=== PATIENT | male | born 1965 | race Caucasian/White ===

== ENCOUNTER 2018-07-21 12:54 | Inpatient (IN) | payer OTHER ==
[2018-07-21] MEDS ORDERED: Sodium Chloride 0.9% 1,000 ML IV ONE ×2 (13:21→17:26)
[2018-07-21 13:40] LABS: BASO # 0.1 K/uL (0.0-0.2); BASO % 0.5 % (0.0-2.0); EOS % 0.3 % (0.0-4.0); HEMOGLOBIN 15.2 g/dL (12.0-18.0); LYMPH # 1.2 K/uL (1.0-4.3); LYMPH % 10.8 % (20.0-40.0); MEAN CORPUSCULAR HGB CONC 32.9 g/dL (33.0-37.0); MEAN PLATELET VOLUME 8.8 fL (7.2-11.7); MONO # 1.1 K/uL (0.0-0.8); NEUT # 8.9 K/uL (1.8-7.0); NEUT % 78.4 % (50.0-75.0); NRBC % 0.1 % (0.0-2.0); RBC 4.91 Mil/uL (4.40-5.90); RED CELL DISTRIBUTION WIDTH 13.2 % (11.5-14.5)
[2018-07-21 13:42] LABS: URINE BILIRUBIN NEGATIVE (NEGATIVE); URINE BLOOD NEGATIVE (NEGATIVE); URINE CLARITY Hazy (Clear); URINE COLOR Yellow (YELLOW); URINE GLUCOSE (UA) NORMAL (Normal); URINE LEUKOCYTE ESTERASE NEG Leu/uL (Negative); URINE PROTEIN 1+ mg/dL (NEGATIVE); URINE UROBILINOGEN NORMAL mg/dL (0.2-1.0)
[2018-07-21 13:47] LABS: WHITE BLOOD COUNT 11.3 K/uL (4.8-10.8)
[2018-07-21 13:56] LABS: ALB/GLOB RATIO 1.4 (1.0-2.1); ALBUMIN 4.7 g/dL (3.5-5.0); ALT/SGPT 26 U/L (21-72); AST/SGOT 32 U/L (17-59); BLOOD UREA NITROGEN 13 mg/dL (9-20); CALCIUM 9.2 mg/dl (8.6-10.4); GFR NON-AFRICAN AMERICAN > 60
[2018-07-21 14:06] LABS: LIPASE 2893 U/L (23-300)
[2018-07-21] MEDS ORDERED: Morphine 4 MG/ML VIAL ONE ×2 (14:45→17:32)
[2018-07-21] MEDS ORDERED: Iodixanol 320 MG/ML 100 ML BOTTLE IV ONE (14:48)
--- NOTE | 2018-07-21 16:10 | CT ---
Date of service: 07/21/2018 PROCEDURE: CT Abdomen and Pelvis with contrast HISTORY: abd pain COMPARISON: None available TECHNIQUE: Contrast dose: 100 mL Visipaque 320 IV Radiation dose: Total exam DLP = 1379.62 mGy-cm. This CT exam was performed using one or more of the following dose reduction techniques: Automated exposure control, adjustment of the mA and/or kV according to patient size, and/or use of iterative reconstruction technique. FINDINGS: LOWER THORAX: No visible consolidation, pleural effusion, or pneumothorax. Small hiatal hernia. LIVER: Unremarkable. GALLBLADDER AND BILE DUCTS: Unremarkable. PANCREAS: Unremarkable. SPLEEN: Unremarkable. ADRENALS: Unremarkable. KIDNEYS AND URETERS: The kidneys enhance symmetrically. No hydronephrosis or obstructing calculus identified. Right lower pole pelvic cyst. VASCULATURE: No aortic aneurysm. Atherosclerotic calcifications of the aorta. BOWEL: Stomach is nondistended. Lack of oral contrast limits evaluation for bowel pathology. Bowel loops appear within normal limits of caliber without evidence of obstruction. Extensive inflammatory stranding and fluid involving the sigmoid colon consistent with acute diverticulitis. Small focus of air (series 3, image 146) may reflect a tiny micro perforation versus diverticula. Small adjacent fluid. APPENDIX: The appendix appears within normal limits of caliber. No secondary signs of acute appendicitis. PERITONEUM: See above. LYMPH NODES: No bulky adenopathy identified. BLADDER: Unremarkable. REPRODUCTIVE: Unremarkable. BONES: No acute osseous abnormality is detected. OTHER FINDINGS: None. IMPRESSION: Extensive inflammatory stranding and fluid involving the sigmoid colon consistent with acute diverticulitis. Small focus of air (series 3, image 146) may reflect a tiny micro perforation versus diverticula. Additional findings as above.
[2018-07-21] MEDS ORDERED: Ciprofloxacin 400mg/200ml D5W 400 MG/200 ML BAG IV STA (17:24)
--- NOTE | 2018-07-21 17:48 | C.PDOC ---
History Of Present Illness 52 y/o male presents to the ER complaining of lower abdominal pain which has been present since last night. Patient states that he has associated nausea and diarrhea. Patient reports that the diarrhea is secondary to him taking Magnesium Citrate. He notes that he took Magnesium Citrate for the pain because he thought he had constipation. He states that he has fever. Denies having vomiting, dysuria, hematuria, GI bleeding, and trauma. Time Seen by Provider: 07/21/18 13:07 Chief Complaint (Nursing): Abdominal Pain History Per: Patient History/Exam Limitations: no limitations Onset/Duration Of Symptoms: Days Current Symptoms Are (Timing): Still Present Severity: Moderate Associated Symptoms: Fever, Nausea, Diarrhea. denies: Chills, Vomiting, Urinary Symptoms Past Medical History Reviewed: Historical Data, Nursing Documentation, Vital Signs Vital Signs: Last Vital Signs Temp 98.8 F 07/21/18 16:30 Pulse 88 07/21/18 16:30 Resp 18 07/21/18 16:30 BP 137/94 H 07/21/18 16:30 Pulse Ox 96 07/21/18 16:30 - Medical History PMH: No Chronic Diseases Surgical History: No Surg Hx Family History: States: No Known Family Hx - Social History Hx Alcohol Use: No Hx Substance Use: No - Immunization History Hx Tetanus Toxoid Vaccination: No Hx Influenza Vaccination: No Hx Pneumococcal Vaccination: No Review Of Systems Except As Marked, All Systems Reviewed And Found Negative. Constitutional: Positive for: Fever. Negative for: Chills Gastrointestinal: Positive for: Nausea, Abdominal Pain, Diarrhea. Negative for: Vomiting Genitourinary: Negative for: Dysuria, Hematuria Physical Exam - Physical Exam Appears: Non-toxic, Other (mild painful distress) Skin: Normal Color, Warm, Diaphoretic, No Rash Head: Atraumatic, Normacephalic Eye(s): bilateral: Normal Inspection, PERRL, EOMI Nose: Normal Oral Mucosa: Moist Throat: No Erythema, No Exudate Neck: Normal ROM, No Midline Cervical Tenderness, No Paracervical Tenderness, Supple Lymphatic: Normal Exam Chest: Symmetrical, No Tenderness Cardiovascular: Rhythm Regular, No Friction Rub, No Murmur Respiratory: Normal Breath Sounds, No Rales, No Rhonchi, No Wheezing Gastrointestinal/Abdominal: Bowel Sounds (active), Soft, Tenderness (moderate diffuse tenderness), Guarding (voluntary guarding), No Rebound Back: Normal Inspection, No CVA Tenderness Male Genital: Normal Inspection, No Testicular Tenderness, No Testicular Swelling, Other (No rash or erythema. Visual Educator: Lamberto Abraham RN) Extremity: Normal ROM, No Swelling Neurological/Psych: Oriented x3, Normal Speech, Normal Motor Gait: Steady ED Course And Treatment - Laboratory Results Result Diagrams: 07/21/18 13:36 07/21/18 13:36 Lab Results: Total Bilirubin 1.3 mg/dL (0.2-1.3) 07/21/18 13:36 AST 32 U/L (17-59) 07/21/18 13:36 ALT 26 U/L (21-72) 07/21/18 13:36 Alkaline Phosphatase 78 U/L (38-126) 07/21/18 13:36 Total Protein 8.1 g/dL (6.3-8.3) 07/21/18 13:36 Albumin 4.7 g/dL (3.5-5.0) 07/21/18 13:36 Globulin 3.4 gm/dL (2.2-3.9) 07/21/18 13:36 Albumin/Globulin Ratio 1.4 (1.0-2.1) 07/21/18 13:36 Lipase 2893 U/L (23-300) H 07/21/18 13:36 Urine Color Yellow (YELLOW) 07/21/18 13:36 Urine Clarity Hazy (Clear) 07/21/18 13:36 Urine pH 6.0 (5.0-8.0) 07/21/18 13:36 Ur Specific [place] 1.024 (1.003-1.030) 07/21/18 13:36 Urine Protein 1+ mg/dL (NEGATIVE) H 07/21/18 13:36 Urine Glucose (UA) Normal mg/dL (Normal) 07/21/18 13:36 Urine Ketones Negative mg/dL (NEGATIVE) 07/21/18 13:36 Urine Blood Negative (NEGATIVE) 07/21/18 13:36 Urine Nitrate Negative (NEGATIVE) 07/21/18 13:36 Urine Bilirubin Negative (NEGATIVE) 07/21/18 13:36 Urine Urobilinogen Normal mg/dL (0.2-1.0) 07/21/18 13:36 Ur Leukocyte Esterase Neg Baldo/uL (Negative) 07/21/18 13:36 Urine WBC (Auto) < 1 /hpf (0-5) 07/21/18 13:36 Urine RBC (Auto) 2 /hpf (0-3) 07/21/18 13:36 O2 Sat by Pulse Oximetry: 96 (RA) Pulse Ox Interpretation: Normal - CT Scan/US CT-Abd & Pelv. Other Rad Studies (CT/US): Read By Radiologist, Radiology Report Reviewed CT/US Interpretation: Date of service: 07/21/2018. PROCEDURE: CT Abdomen and Pelvis with contrast. HISTORY: abd pain. COMPARISON: None available. TECHNIQUE: Contrast dose: 100 mL Visipaque 320 IV. Radiation dose: Total exam DLP = 1379.62 mGy-cm. This CT exam was performed using one or more of the following dose reduction techniques: Automated exposure control, adjustment of the mA and/or kV according to patient size, and/or use of iterative reconstruction technique. FINDINGS: LOWER THORAX: No visible consolidation, pleural effusion, or pneumothorax. Small hiatal hernia. LIVER: Unremarkable. GALLBLADDER AND BILE DUCTS: Unremarkable. PANCREAS: Unremarkable. SPLEEN: Unremarkable. ADRENALS: Unremarkable. KIDNEYS AND URETERS: The kidneys enhance symmetrically. No hydronephrosis or obstructing calculus identified. Right lower pole pelvic cyst. VASCULATURE: No aortic aneurysm. Atherosclerotic calcifications of the aorta. BOWEL: Stomach is nondistended. Lack of oral contrast limits evaluation for bowel pathology. Bowel loops appear within n ormal limits of caliber without evidence of obstruction. Extensive inflammatory stranding and fluid involving the sigmoid colon consistent with acute diverticulitis. Small focus of air (series 3, image 146) may reflect a tiny micro perforation versus diverticula. Small adjacent fluid. APPENDIX: The appendix appears within normal limits of caliber. No secondary signs of acute appendicitis. PERITONEUM: See above. LYMPH NODES: No bulky adenopathy identified. BLADDER: Unremarkable. REPRODUCTIVE: Unremarkable. BONES: No acute osseous abnormality is detected. OTHER FINDINGS: None. IMPRESSION: Extensive inflammatory stranding and fluid involving the sigmoid colon consistent with acute diverticulitis. Small focus of air (series 3, image 146) may reflect a tiny micro perforation versus diverticula. Additional findings as above. Medical Decision Making Medical Decision Making: Plan: --Labs --UA --CT- Abd & Pelv. --IV Fluids --Zofran IV --Morphine IV --Flagyl IV --Ciprofloxacin IV At 1630, the patient states that he was having some testicular pain. Testicular US ordered. CT scan shows Diverticulitis with possible micro perforations. (+) pancreatitis. IV Cipro and Flagyl. 17:50 Case discussed with , hospitalist. is requesting for patient to be admitted under . Disposition - Disposition Disposition: HOSPITALIZED Disposition Time: 17:50 Condition: FAIR - Clinical Impression Clinical Impression: Diverticulitis, Pancreatitis - PA / [employer] / Resident Statement MD/DO has reviewed & agrees with the documentation as recorded. - Scribe Statement The provider has reviewed the documentation as recorded by the Scribe Josseline Moralez Provider Attestation All medical record entries made by the Scribe were at my direction and personally dictated by me. I have reviewed the chart and agree that the record accurately reflects my personal performance of the history, physical exam, medical decision making, and the department course for this patient. I have also personally directed, reviewed, and agree with the discharge instructions and disposition.
[2018-07-21] MEDS ORDERED: Ciprofloxacin 400mg/200ml D5W 400 MG/200 ML BAG IVPB ONE (18:21)
--- NOTE | 2018-07-21 19:10 | CP.PCM.HP ---
<Bibiana Shirley - Last Filed: 07/21/18 23:13> History of Present Illness - History of Present Illness History of Present Illness: PGY-1 Bibiana Shirley D.O. H&P for Dr. Chiu's service: Patient is a 52 yo male with history of GERD who presents with abdominal pain. Patient states that around midnight, he woke up with a sharp pain in his LLQ. The pain radiated across his lower abdomen. In the morning, he felt like he was constipated, so he took magnesium citrate. He then began to have diarrhea. He has had approximately 6 episodes of diarrhea today- watery, nonbloody. He also admits to nausea and has been unable to eat or drink anything since this morning. He denies vomiting. He endorses fever and chills. He says this pain has never happened to him before. Patient reports having a colonoscopy in 2007 in which they found diverticulosis. PMH: GERD PSH: colonoscopy 2007, EGD 2007, 2011 Meds: Omeprazole 20 mg PO daily PRN heartburn All: NKDA FH: maternal grandfather ( 86)- colon CA, mother ( 54)- ovarian CA, father- gout SH: lives with and 2 sons, works in IT at [employer], denies alcohol, tobacco, and illicit drug use PMD: Miqbel Present on Admission - Present on Admission Any Indicators Present on Admission: No History of DVT/PE: No History of Uncontrolled Diabetes: No Urinary Catheter: No Decubitus Ulcer Present: No History Surgical Site Infection Following: None Review of Systems - Constitutional Constitutional: Chills, Fever, Headache. absent: Weight Loss - EENT Eyes: absent: Change in Vision Ears: absent: Decreased Hearing Nose/Mouth/Throat: absent: Nasal Congestion, Sore Throat - Cardiovascular Cardiovascular: absent: Chest Pain, Diaphoresis, Dyspnea, Palpitations - Respiratory Respiratory: absent: Cough, Dyspnea - Gastrointestinal Gastrointestinal: As Per HPI, Abdominal Pain, Diarrhea, Heartburn, Nausea. absent: Constipation, Vomiting - Genitourinary Genitourinary: absent: Dysuria, Hematuria - Musculoskeletal Musculoskeletal: absent: Back Pain, Neck Pain, Numbness, Tingling - Integumentary Integumentary: absent: Lesions, Rash - Neurological Neurological: absent: Dizziness, Focal Weakness, Sensory Deficit - Psychiatric Psychiatric: absent: Anxiety, Depression - Endocrine Endocrine: absent: Fatigue, Palpitations, Polydipsia, Polyphagia, Polyuria - Hematologic/Lymphatic Hematologic: absent: Easy Bleeding, Easy Bruising, Lymphadenopathy Past Patient History - Infectious Disease Hx of Infectious Diseases: None - Tetanus Immunizations Tetanus Immunization: Unknown - Past Medical History & Family History Past Medical History?: Yes Pertinent Family History: maternal grandfather- colon CA; mother- ovarian CA - Past Social History Smoking Status: Never Smoked Chewing Tobacco Use: No Cigar Use: No Alcohol: None Drugs: Denies Home Situation {Lives}: With Family - PSYCHIATRIC Hx Substance Use: No - ANESTHESIA Hx Anesthesia: No Meds Allergies/Adverse Reactions: Allergies Allergy/AdvReac Type Severity Reaction Status Date / Time No Known Allergies Allergy Unverified 08/06/15 21:39 Physical Exam - Constitutional Appears: Non-toxic, No Acute Distress - Head Exam Head Exam: ATRAUMATIC, NORMAL INSPECTION - Eye Exam Eye Exam: EOMI, Normal appearance, PERRL - ENT Exam ENT Exam: Mucous Membranes Moist - Neck Exam Neck exam: Positive for: Normal Inspection - Respiratory Exam Respiratory Exam: Clear to Auscultation Bilateral, NORMAL BREATHING PATTERN - Cardiovascular Exam Cardiovascular Exam: RRR, +S1, +S2 - GI/Abdominal Exam GI & Abdominal Exam: Distended, Guarding, Soft, Tenderness (LLQ). absent: Rebound Additional comments: Espinoza's sign negative Psoas sign negative - Extremities Exam Extremities exam: Positive for: normal inspection, pedal pulses present. Negative for: pedal edema, tenderness - Back Exam Back exam: NORMAL INSPECTION - Neurological Exam Neurological exam: Alert, CN II-XII Intact, Normal Gait, Oriented x3 - Psychiatric Exam Psychiatric exam: Normal Affect, Normal Mood - Skin Skin Exam: Dry, Intact, Normal Color, Warm Results - Vital Signs Recent Vital Signs: Last Vital Signs Temp 98.8 F 07/21/18 16:30 Pulse 88 07/21/18 16:30 Resp 18 07/21/18 16:30 BP 137/94 H 07/21/18 16:30 Pulse Ox 96 07/21/18 18:57 - Labs Result Diagrams: 07/21/18 13:36 07/21/18 13:36 Labs: Laboratory Results - last 24 hr 07/21/18 07/21/18 07/21/18 13:36 13:36 13:36 WBC 11.3 H D RBC 4.91 Hgb 15.2 Hct 46.1 MCV 94.0 MCH 31.0 MCHC 32.9 L RDW 13.2 Plt Count 186 MPV 8.8 Neut % (Auto) 78.4 H Lymph % (Auto) 10.8 L Brooke % (Auto) 10.0 Eos % (Auto) 0.3 Baso % (Auto) 0.5 Neut # (Auto) 8.9 H Lymph # (Auto) 1.2 Brooke # (Auto) 1.1 H Eos # (Auto) 0.0 Baso # (Auto) 0.1 Sodium 139 Potassium 4.2 Chloride 102 Carbon Dioxide 28 Anion Gap 13 BUN 13 Creatinine 0.8 Est GFR ( Amer) > 60 Est GFR (Non-Af Amer) > 60 Random Glucose 129 H D Calcium 9.2 Total Bilirubin 1.3 AST 32 ALT 26 Alkaline Phosphatase 78 Total Protein 8.1 Albumin 4.7 Globulin 3.4 Albumin/Globulin Ratio 1.4 Lipase 2893 H Urine Color Yellow Urine Clarity Hazy Urine pH 6.0 Ur Specific [place] 1.024 Urine Protein 1+ H Urine Glucose (UA) Normal Urine Ketones Negative Urine Blood Negative Urine Nitrate Negative Urine Bilirubin Negative Urine Urobilinogen Normal Ur Leukocyte Esterase Neg Urine WBC (Auto) < 1 Urine RBC (Auto) 2 - Imaging and Cardiology CT scan - abdomen Status: Image reviewed by me, Report reviewed by me Assessment & Plan - Assessment and Plan (Free Text) Assessment: Patient is a 52 yo male with history of GERD who presents with abdominal pain. Found to have diverticulitis on CT with questionable microperforation. Lipase elevated at 2893 but pancreas unremarkable on CT. This likely not primary pancreatitis but rather 2/2 colon inflammation. Plan: Acute diverticulitis - Tmax 100.1 - WBC 11.3 - CT A/P: sigmoid diverticulitis, area of air representing micoperforation vs diverticula, unremarkable pancreas, no gallstones - NPO - f/u Blood Cx - D5 1/2NS @ 125 cc/hr - Cipro 400 mg IV Q12H- started 18 - Flagyl 500 mg IV Q8H- started 18 - Morphine 2 mg IV Q4H PRN - Zofran 4 mg IV Q6H PRN GERD - Protonix 40 mg IV daily Ppx: VTE: SCDs GI: Protonix 40 mg IV daily Code status: full code Case discussed with attending, Dr. Chiu. <Ravi Chiu - Last Filed: 07/22/18 07:46> Results - Vital Signs Recent Vital Signs: Last Vital Signs Temp 100.1 F H 07/21/18 23:35 Pulse 86 07/21/18 23:35 Resp 20 07/21/18 23:35 BP 96/58 L 07/21/18 23:35 Pulse Ox 96 07/21/18 23:35 - Labs Result Diagrams: 07/22/18 07:06 07/22/18 07:06 Labs: Laboratory Results - last 24 hr 07/21/18 07/21/18 07/21/18 13:36 13:36 13:36 WBC 11.3 H D RBC 4.91 Hgb 15.2 Hct 46.1 MCV 94.0 MCH 31.0 MCHC 32.9 L RDW 13.2 Plt Count 186 MPV 8.8 Neut % (Auto) 78.4 H Lymph % (Auto) 10.8 L [place] % (Auto) 10.0 Eos % (Auto) 0.3 Baso % (Auto) 0.5 Neut # (Auto) 8.9 H Lymph # (Auto) 1.2 Brooke # (Auto) 1.1 H Eos # (Auto) 0.0 Baso # (Auto) 0.1 Sodium 139 Potassium 4.2 Chloride 102 Carbon Dioxide 28 Anion Gap 13 BUN 13 Creatinine 0.8 Est GFR ( Amer) > 60 Est GFR (Non-Af Amer) > 60 Random Glucose 129 H D Calcium 9.2 Phosphorus Magnesium Total Bilirubin 1.3 AST 32 ALT 26 Alkaline Phosphatase 78 Total Protein 8.1 Albumin 4.7 Globulin 3.4 Albumin/Globulin Ratio 1.4 Triglycerides Cholesterol HDL Cholesterol Lipase 2893 H Urine Color Yellow Urine Clarity Hazy Urine pH 6.0 Ur Specific [place] 1.024 Urine Protein 1+ H Urine Glucose (UA) Normal Urine Ketones Negative Urine Blood Negative Urine Nitrate Negative Urine Bilirubin Negative Urine Urobilinogen Normal Ur Leukocyte Esterase Neg Urine WBC (Auto) < 1 Urine RBC (Auto) 2 07/21/18 07/22/18 07/22/18 20:15 07:06 07:06 WBC 9.5 RBC 4.13 L Hgb 13.3 Hct 39.4 MCV 95.4 H MCH 32.2 H MCHC 33.7 RDW 13.1 Plt Count 161 MPV 8.8 Neut % (Auto) 70.1 Lymph % (Auto) 14.6 L [place] % (Auto) 14.4 H Eos % (Auto) 0.6 Baso % (Auto) 0.3 Neut # (Auto) 6.7 Lymph # (Auto) 1.4 Brooke # (Auto) 1.4 H Eos # (Auto) 0.1 Baso # (Auto) 0.0 Sodium 135 Potassium 3.8 Chloride 103 Carbon Dioxide 28 Anion Gap 8 L BUN 12 Creatinine 0.9 Est GFR ( Amer) > 60 Est GFR (Non-Af Amer) > 60 Random Glucose 117 H Calcium 8.0 L Phosphorus 3.0 2.2 L Magnesium 2.3 2.1 Total Bilirubin 2.6 H AST 18 ALT 16 L D Alkaline Phosphatase 56 Total Protein 6.3 Albumin 3.6 Globulin 2.6 Albumin/Globulin Ratio 1.4 Triglycerides 36 D Cholesterol 119 HDL Cholesterol 43 Lipase Urine Color Urine Clarity Urine pH Ur Specific [place] Urine Protein Urine Glucose (UA) Urine Ketones Urine Blood Urine Nitrate Urine Bilirubin Urine Urobilinogen Ur Leukocyte Esterase Urine WBC (Auto) Urine RBC (Auto) Attending/Attestation - Attestation I have personally seen and examined this patient.: Yes I have fully participated in the care of the patient.: Yes I have reviewed all pertinent clinical information: Yes Notes (Text): 07/22/18 07:42 Diverticulitis likely got worse with use of mag citrate at home, slight elevated lipase likely for contigious inflammation form diverticulitis, no epigastric tenderness and no inflammation of pancreas on CT Plan Bowel rest IVF IV abx pain control Out patient f/u with his gi for colonoscopy for assessment of the diverticular segment. See orders for detail.
[2018-07-21] MEDS: Dextrose 5%/0.45% NS 1,000 ML IV SCH (22:29)
[2018-07-21] MEDS: metroNIDAZOLE IV 500 mg/100 ml 500 MG/100 ML BAG IV SCH (23:36)
[2018-07-21] MEDS: metroNIDAZOLE IV 500 mg/100 ml 500 MG/100 ML BAG IVPB SCH (23:40)
[2018-07-22] MEDS: Ciprofloxacin 400mg/200ml D5W 400 MG/200 ML BAG IVPB SCH ×2 (05:08→18:03)
--- NOTE | 2018-07-22 07:09 | CP.PCM.PN ---
Subjective - Date & Time of Evaluation Date of Evaluation: 07/22/18 Time of Evaluation: 07:09 - Subjective Subjective: Progress Note for Hospitalist service Patient seen and examined at bedside. Patient complains of persistent lower abdominal pain. He states he has not had a bowel movement since his admission here since he has not had anything to eat here. Patient is complaining of migraine like headache associated with sensitivity to light and sound. He denies diarrhea since his admission, denies nausea or vomiting, chest pain, shortness of breath, palpitations, fevers, chills, urinary frequency, leg pain. Objective - Vital Signs/Intake and Output Vital Signs (last 24 hours): Temp Pulse Resp BP Pulse Ox 100.1 F H 86 20 96/58 L 96 07/21/18 23:35 07/21/18 23:35 07/21/18 23:35 07/21/18 23:35 07/21/18 23:35 Intake and Output: 07/22/18 07/22/18 06:59 18:59 Intake Total 1000 Balance 1000 - Medications Medications: Current Medications Metronidazole (Flagyl) 500 mg in 100 mls @ 100 mls/hr IV STAT CARLINE; Protocol Ciprofloxacin (Cipro 400mg/200ml Dsw) 400 mg in 200 mls @ 133 mls/hr IVPB Q12H [facility]LINE; Protocol Last Admin: 07/22/18 05:08 Dose: 133 mls/hr Metronidazole (Flagyl) 500 mg in 100 mls @ 100 mls/hr IVPB Q8H [facility]; Protocol Last Admin: 07/21/18 23:40 Dose: 100 mls/hr Dextrose/Sodium Chloride (Dextrose 5%/0.45% Ns 1000 Ml) 1,000 mls @ 125 mls/hr IV .Q8H [facility]LINE Last Admin: 07/21/18 22:29 Dose: 125 mls/hr Morphine Sulfate (Morphine) 2 mg IVP Q4 PRN PRN Reason: Pain, severe (8-10) Last Admin: 07/22/18 01:27 Dose: 2 mg Ondansetron HCl (Zofran Inj) 4 mg IVP Q6H PRN PRN Reason: Nausea/Vomiting Pantoprazole Sodium (Protonix Inj) 40 mg IVP DAILY [facility] Pneumococcal Polyvalent Vaccine (Pneumovax 23 Vaccine) 0.5 ml IM .ONCE ONE Stop: 07/23/18 14:01 - Labs Labs: 07/21/18 13:36 07/21/18 13:36 - Constitutional Appears: Well, Non-toxic, Other (Mild distress ) - Head Exam Head Exam: ATRAUMATIC, NORMOCEPHALIC - Eye Exam Eye Exam: EOMI, PERRL - ENT Exam ENT Exam: Mucous Membranes Moist - Neck Exam Neck Exam: Full ROM. absent: Tenderness - Respiratory Exam Respiratory Exam: Clear to Ausculation Bilateral, NORMAL BREATHING PATTERN. absent: Rales, Rhonchi, Wheezes, Respiratory Distress, Stridor - Cardiovascular Exam Cardiovascular Exam: REGULAR RHYTHM, +S1, +S2. absent: Gallop, Rubs, Murmur - GI/Abdominal Exam GI & Abdominal Exam: Soft, Tenderness (of lower quadrants bilaterally, greatest in LLQ. ), Normal Bowel Sounds. absent: Distended, Firm, Rigid - Extremities Exam Extremities Exam: Normal Capillary Refill. absent: Calf Tenderness, Pedal Edema, Tenderness - Back Exam Back Exam: absent: CVA tenderness (L), CVA tenderness (R), rash noted - Neurological Exam Neurological Exam: Alert, Awake, CN II-XII Intact, Oriented x3 - Psychiatric Exam Psychiatric exam: Normal Affect, Normal Mood - Skin Skin Exam: Dry, Intact, Warm Assessment and Plan - Assessment and Plan (Free Text) Assessment: 52 year old male with history of GERD presenting for abdominal pain, found to have acute diverticulitis with microperforation of imaging. Plan: Acute diverticulitis with microperforation - Tmax 100.1 overnight - WBC 9.5 today, downtrending from 11.3 - CT A/P: sigmoid diverticulitis, area of air representing micoperforation vs diverticula, unremarkable pancreas, no gallstones - Keep NPO - Follow up blood cultures - Lipase elevated at 2893 - T bili elevated at 2.6 - D5 1/2NS @ 125 cc/hr - Cipro 400 mg IV Q12H- started 07/21 - Flagyl 500 mg IV Q8H- started 07/21 - Morphine 2 mg IV Q4H PRN - Zofran 4 mg IV Q6H PRN - GI Dr. Urias consulted, help appreciated Recommend continued antibiotic treatment with Cipro and Flagyl, pain control, clear liquid diet tomorrow morning if patient improves - Surgery Dr. Ortega consulted, help appreciated Recommend antibiotics. No plans for surgery at this time. GERD - Protonix 40 mg IV daily Headache - Toradol 30mg IV stat given - Continue to monitor Prophylaxis VTE: SCDs, Heparin 5000 SC Q12 GI: Protonix 40 mg IV daily Code status: full code Case discussed with Dr. Ajith Pascual, PGY1
[2018-07-22 07:28] LABS: BASO % 0.3 % (0.0-2.0); EOS # 0.1 K/uL (0.0-0.7); EOS % 0.6 % (0.0-4.0); HEMOGLOBIN 13.3 g/dL (12.0-18.0); LYMPH # 1.4 K/uL (1.0-4.3); LYMPH % 14.6 % (20.0-40.0); MEAN CELL VOLUME 95.4 fL (80.0-94.0); MEAN CORPUSCULAR HEMOGLOBIN 32.2 pg (27.0-31.0); MEAN CORPUSCULAR HGB CONC 33.7 g/dL (33.0-37.0); MEAN PLATELET VOLUME 8.8 fL (7.2-11.7); MONO # 1.4 K/uL (0.0-0.8); MONO % 14.4 % (0.0-10.0); NEUT # 6.7 K/uL (1.8-7.0); NEUT % 70.1 % (50.0-75.0); RBC 4.13 Mil/uL (4.40-5.90); RED CELL DISTRIBUTION WIDTH 13.1 % (11.5-14.5); WHITE BLOOD COUNT 9.5 K/uL (4.8-10.8)
[2018-07-22 07:38] LABS: ALB/GLOB RATIO 1.4 (1.0-2.1); ALBUMIN 3.6 g/dL (3.5-5.0); ALT/SGPT 16 U/L (21-72); AST/SGOT 18 U/L (17-59); BLOOD UREA NITROGEN 12 mg/dL (9-20); GFR NON-AFRICAN AMERICAN > 60; HDL CHOLESTEROL 43 mg/dL (30-70)
[2018-07-22 07:47] LABS: LDL CHOLESTEROL 74 mg/dL (0-129)
[2018-07-22] MEDS: Dextrose 5%/0.45% NS 1,000 ML IV SCH ×3 (08:52→21:49)
[2018-07-22] MEDS: metroNIDAZOLE IV 500 mg/100 ml 500 MG/100 ML BAG IVPB SCH ×3 (08:53→23:18)
--- NOTE | 2018-07-22 11:10 | US ---
Date of service: 07/21/2018 HISTORY: pain to the R testicles TECHNIQUE: Realtime sonography through the scrotum with color and doppler flow. COMPARISON: Testicular ultrasound performed 08/03/17 FINDINGS: RIGHT TESTICLE: Measures 4.7 x 1.7 x 2.7 cm. Homogeneous echotexture. Blood flow is demonstrated. RIGHT EPIDIDYMIS: Unremarkable. LEFT TESTICLE: Measures 4.7 x 1.4 x 2.2 cm. Homogeneous echotexture. Blood flow is demonstrated. LEFT EPIDIDYMIS: Unremarkable. HYDROCELE: Small left hydrocele. Trace right hydrocele. VARICOCELE: None. OTHER FINDINGS: None. IMPRESSION: Small left hydrocele. Trace right hydrocele. Preliminary impression was provided by [facility].
--- NOTE | 2018-07-22 13:20 | CP.PCM.CON ---
<Nav Galvan - Last Filed: 07/22/18 14:28> History of Present Illness - History of Present Illness History of Present Illness: PGY6 GI Fellow Consult Note Patient is a 52yo male with PMHx significant for diverticulosis who presented to the ED with abdominal pain. Pain began Saturday evening after dinner. Patient believed he was suffering with constipation and used Magnesium citrate. Followi ng the passage of multiple loose stool, he developed intense stabbing LLQ abdominal pain which radiated to the RLQ. Symptoms intensified over the course of the day yesterday and did not resolve which prompted him t ocome ot the ED for further evaluation. A CT perfomred in the ED revealed diverticulitis with microperforation and patient was admitted to the hospital, started on antibiotic therapy with Cipro/Flagyl. Since admission, he admits to improvement in pain. Continues to pass scant liquid stool. Denies any nausea, vomiting, weight loss, change in bowel habits or prior events like this. Does admit to fever/chills which have improved since admission. Had prior endoscopy/colonoscopy in 2007 which just revealed the presence of diverticulosis. 12 system ROS performed and negative except where stated above. PMHx: See HPI PSHx: Discussed with patient and he denies FHx: Discussed with patient and he denies significant GI malignancy Social: Former heavy tobacco/EtOH use - abstinent from both since 2004; no illicit drug use Endo: As stated in HPI Past Patient History - Infectious Disease Hx of Infectious Diseases: None - Tetanus Immunizations Tetanus Immunization: Unknown - Past Medical History & Family History Past Medical History?: Yes - Past Social History Smoking Status: Never Smoked Chewing Tobacco Use: No Cigar Use: No Alcohol: None Drugs: Denies Home Situation {Lives}: With Family - MUSCULOSKELETAL/RHEUMATOLOGICAL Hx Falls: No - GENITOURINARY/GYNECOLOGICAL Hx Genitourinary Disorders: No - PSYCHIATRIC Hx Substance Use: No - SURGICAL HISTORY Hx Surgeries: No - ANESTHESIA Hx Anesthesia: No Meds Allergies/Adverse Reactions: Allergies Allergy/AdvReac Type Severity Reaction Status Date / Time No Known Allergies Allergy Unverified 08/06/15 21:39 - Medications Medications: Current Medications Acetaminophen (Tylenol 325mg Tab) 650 mg PO Q6 PRN PRN Reason: Pain, moderate (4-7) Heparin Sodium (Porcine) (Heparin) 5,000 units SC Q12H [facility] Last Admin: 07/22/18 10:00 Dose: 5,000 units Metronidazole (Flagyl) 500 mg in 100 mls @ 100 mls/hr IV STAT [facility]; Protocol Ciprofloxacin (Cipro 400mg/200ml Dsw) 400 mg in 200 mls @ 133 mls/hr IVPB Q12H [facility]; Protocol Last Admin: 07/22/18 05:08 Dose: 133 mls/hr Metronidazole (Flagyl) 500 mg in 100 mls @ 100 mls/hr IVPB Q8H [facility]; Protocol Last Admin: 07/22/18 08:53 Dose: 100 mls/hr Dextrose/Sodium Chloride (Dextrose 5%/0.45% Ns 1000 Ml) 1,000 mls @ 125 mls/hr IV .Q8H [facility] Last Admin: 07/22/18 08:52 Dose: 125 mls/hr Morphine Sulfate (Morphine) 2 mg IVP Q4 PRN PRN Reason: Pain, severe (8-10) Last Admin: 07/22/18 09:00 Dose: 2 mg Ondansetron HCl (Zofran Inj) 4 mg IVP Q6H PRN PRN Reason: Nausea/Vomiting Pantoprazole Sodium (Protonix Inj) 40 mg IVP DAILY [facility] Last Admin: 07/22/18 10:00 Dose: 40 mg Pneumococcal Polyvalent Vaccine (Pneumovax 23 Vaccine) 0.5 ml IM .ONCE ONE Stop: 07/23/18 14:01 Physical Exam - Constitutional Appears: Non-toxic, No Acute Distress - Eye Exam Eye Exam: EOMI, PERRL - ENT Exam ENT Exam: Mucous Membranes Moist - Respiratory Exam Respiratory Exam: Clear to Auscultation Bilateral. absent: Rales, Rhonchi, Wheezes - Cardiovascular Exam Cardiovascular Exam: RRR, +S1, +S2 - GI/Abdominal Exam GI & Abdominal Exam: Normal Bowel Sounds, Soft, Tenderness (LLQ). absent: Distended, Firm, Guarding, Mass, Organomegaly, Rigid - Extremities Exam Extremities exam: Positive for: normal inspection. Negative for: pedal edema - Neurological Exam Neurological exam: Alert, Oriented x3 - Psychiatric Exam Psychiatric exam: Normal Affect, Normal Mood - Skin Skin Exam: Dry, Warm Results - Vital Signs Recent Vital Signs: Last Vital Signs Temp 98.5 F 02/19/19 08:00 Pulse 66 07/22/18 09:03 Resp 20 07/22/18 08:00 BP 110/68 07/22/18 09:03 Pulse Ox 95 07/22/18 08:00 - Labs Result Diagrams: 07/22/18 07:06 07/22/18 07:06 Labs: Laboratory Results - last 24 hr 07/21/18 07/21/18 07/21/18 13:36 13:36 13:36 WBC 11.3 H D RBC 4.91 Hgb 15.2 Hct 46.1 MCV 94.0 MCH 31.0 MCHC 32.9 L RDW 13.2 Plt Count 186 MPV 8.8 Neut % (Auto) 78.4 H Lymph % (Auto) 10.8 L [place] % (Auto) 10.0 Eos % (Auto) 0.3 Baso % (Auto) 0.5 Neut # (Auto) 8.9 H Lymph # (Auto) 1.2 [place] # (Auto) 1.1 H Eos # (Auto) 0.0 Baso # (Auto) 0.1 Sodium 139 Potassium 4.2 Chloride 102 Carbon Dioxide 28 Anion Gap 13 BUN 13 Creatinine 0.8 Est GFR ( Amer) > 60 Est GFR (Non-Af Amer) > 60 Random Glucose 129 H D Calcium 9.2 Phosphorus Magnesium Total Bilirubin 1.3 AST 32 ALT 26 Alkaline Phosphatase 78 Total Protein 8.1 Albumin 4.7 Globulin 3.4 Albumin/Globulin Ratio 1.4 Triglycerides Cholesterol LDL Cholesterol Direct HDL Cholesterol Lipase 2893 H Urine Color Yellow Urine Clarity Hazy Urine pH 6.0 Ur Specific [place] 1.024 Urine Protein 1+ H Urine Glucose (UA) Normal Urine Ketones Negative Urine Blood Negative Urine Nitrate Negative Urine Bilirubin Negative Urine Urobilinogen Normal Ur Leukocyte Esterase Neg Urine WBC (Auto) < 1 Urine RBC (Auto) 2 07/21/18 07/22/18 07/22/18 20:15 07:06 07:06 WBC 9.5 RBC 4.13 L Hgb 13.3 Hct 39.4 MCV 95.4 H MCH 32.2 H MCHC 33.7 RDW 13.1 Plt Count 161 MPV 8.8 Neut % (Auto) 70.1 Lymph % (Auto) 14.6 L [place] % (Auto) 14.4 H Eos % (Auto) 0.6 Baso % (Auto) 0.3 Neut # (Auto) 6.7 Lymph # (Auto) 1.4 [place] # (Auto) 1.4 H Eos # (Auto) 0.1 Baso # (Auto) 0.0 Sodium 135 Potassium 3.8 Chloride 103 Carbon Dioxide 28 Anion Gap 8 L BUN 12 Creatinine 0.9 Est GFR ( Amer) > 60 Est GFR (Non-Af Amer) > 60 Random Glucose 117 H Calcium 8.0 L Phosphorus 3.0 2.2 L Magnesium 2.3 2.1 Total Bilirubin 2.6 H AST 18 ALT 16 L D Alkaline Phosphatase 56 Total Protein 6.3 Albumin 3.6 Globulin 2.6 Albumin/Globulin Ratio 1.4 Triglycerides 36 D Cholesterol 119 LDL Cholesterol Direct 74 HDL Cholesterol 43 Lipase Urine Color Urine Clarity Urine pH Ur Specific [place] Urine Protein Urine Glucose (UA) Urine Ketones Urine Blood Urine Nitrate Urine Bilirubin Urine Urobilinogen Ur Leukocyte Esterase Urine WBC (Auto) Urine RBC (Auto) Assessment & Plan - Assessment and Plan (Free Text) Assessment: Patient is a 52yo male with PMHx significant for diverticulosis who presented to the ED with abdominal pain -Acute diverticulitis complicated by microperforation -Hyperlipasemia and indirect hyperbilirubinemia Plan: -CT scan reviewed with evidence of acute diverticulitis with microperforation -Continue antibiotic regimen with Cipro/Flagyl -Pain control with analgesia per primary service -Recommend clear liquid diet tomorrow morning if patient continues to improve, with slow advancement as tolerated; goal of high fiber diet upon resolution -Patient does not meet criteria for diagnosis of acute pancreatitis (imaging and physical exam unremarkable for this); elevated lipase can be seen in intraabdominal processes, particularly with perforation -Indirect hyperbilirubinemia possibly 2/2 Gilbert syndrome in setting of acute s tress -Consider surgical evaluation given complicated diverticulitis - Date & Time Date: 07/22/18 Time: 13:00 <Braxton Urias Y - Last Filed: 07/22/18 14:38> Meds - Medications Medications: Current Medications Acetaminophen (Tylenol 325mg Tab) 650 mg PO Q6 PRN PRN Reason: Pain, moderate (4-7) Heparin Sodium (Porcine) (Heparin) 5,000 units SC Q12H [facility] Last Admin: 07/22/18 10:00 Dose: 5,000 units Metronidazole (Flagyl) 500 mg in 100 mls @ 100 mls/hr IV STAT [facility]; Protocol Ciprofloxacin (Cipro 400mg/200ml Dsw) 400 mg in 200 mls @ 133 mls/hr IVPB Q12H [facility]; Protocol Last Admin: 07/22/18 05:08 Dose: 133 mls/hr Metronidazole (Flagyl) 500 mg in 100 mls @ 100 mls/hr IVPB Q8H [facility]; Protocol Last Admin: 07/22/18 08:53 Dose: 100 mls/hr Dextrose/Sodium Chloride (Dextrose 5%/0.45% Ns 1000 Ml) 1,000 mls @ 125 mls/hr IV .Q8H [facility] Last Admin: 07/22/18 08:52 Dose: 125 mls/hr Morphine Sulfate (Morphine) 2 mg IVP Q4 PRN PRN Reason: Pain, severe (8-10) Last Admin: 07/22/18 09:00 Dose: 2 mg Ondansetron HCl (Zofran Inj) 4 mg IVP Q6H PRN PRN Reason: Nausea/Vomiting Pantoprazole Sodium (Protonix Inj) 40 mg IVP DAILY [facility] Last Admin: 07/22/18 10:00 Dose: 40 mg Pneumococcal Polyvalent Vaccine (Pneumovax 23 Vaccine) 0.5 ml IM .ONCE ONE Stop: 07/23/18 14:01 Results - Vital Signs Recent Vital Signs: Last Vital Signs Temp 98.5 F 07/22/18 08:00 Pulse 66 07/22/18 09:03 Resp 20 07/22/18 08:00 BP 110/68 07/22/18 09:03 Pulse Ox 95 07/22/18 08:00 - Labs Result Diagrams: 07/22/18 07:06 07/22/18 07:06 Labs: Laboratory Results - last 24 hr 07/21/18 07/22/18 07/22/18 20:15 07:06 07:06 WBC 9.5 RBC 4.13 L Hgb 13.3 Hct 39.4 MCV 95.4 H MCH 32.2 H MCHC 33.7 RDW 13.1 Plt Count 161 MPV 8.8 Neut % (Auto) 70.1 Lymph % (Auto) 14.6 L [place] % (Auto) 14.4 H Eos % (Auto) 0.6 Baso % (Auto) 0.3 Neut # (Auto) 6.7 Lymph # (Auto) 1.4 [place] # (Auto) 1.4 H Eos # (Auto) 0.1 Baso # (Auto) 0.0 Sodium 135 Potassium 3.8 Chloride 103 Carbon Dioxide 28 Anion Gap 8 L BUN 12 Creatinine 0.9 Est GFR ( Amer) > 60 Est GFR (Non-Af Amer) > 60 Random Glucose 117 H Calcium 8.0 L Phosphorus 3.0 2.2 L Magnesium 2.3 2.1 Total Bilirubin 2.6 H Direct Bilirubin 0.1 AST 18 ALT 16 L D Alkaline Phosphatase 56 Total Protein 6.3 Albumin 3.6 Globulin 2.6 Albumin/Globulin Ratio 1.4 Triglycerides 36 D Cholesterol 119 LDL Cholesterol Direct 74 HDL Cholesterol 43 Attending/Attestation - Attestation I have personally seen and examined this patient.: Yes I have fully participated in the care of the patient.: Yes I have reviewed all pertinent clinical information: Yes Notes (Text): 07/22/18 14:33 I have seen and examined patient with GI fellow. Agree with above documentation with the following additions. In brief, this is a 52 year old male without significant past medical history who presents to hospital with complaint of sudden onset abdominal pain which began 2 days ago. Prior to this he was in usual state of health. He describes sharp LLQ, 8/10 intensity pain radiating to RLQ that began after consumption of dinner and became progressively worse. He does note recent constipation over the past few days and used magnesium citrate followed by passage of multiple soft bowel movements. He denies fever/chills, weight loss, rectal bleeding, or sick contacts. He had a colonoscopy 11 years ago in [facility] which showed diverticular disease as per patient. Abdominal pain Acute diverticulitis complicated by microperforation CT imaging reviewed by me showing sigmoid wall thickening with rubio-colonic i nflammatory stranding - NPO - Continue with antibiotic therapy - Continue with IVF hydration, supportive care - Suggest surgical consultation given presence of microperforation - Will continue to monitor patient clinical course, discussed with hospitalist team
[2018-07-22 13:29] LABS: BILIRUBIN,DIRECT 0.1 mg/dL (0.0-0.4)
--- NOTE | 2018-07-22 15:33 | CP.PCM.CON ---
History of Present Illness - History of Present Illness History of Present Illness: Surgery consult for Dr. Ott This is a 52 y/o male with past medical history of GERD who presented to the ED with complaints of LLQ pain radiating to the RLQ. Surgery was consulted for acute diverticulitis with possible microperforation. Patient states the pain started on Saturday night and took magnesium citrate as he attributed the pain to constipation. He had 4-5 episodes of watery, non bloody diarrhea afterward. Pain is exacerbated by movement. He described the pain to be shooting. This has never happened in the past. Patient reports improvement in pain due to morphine. His diarrheal episodes have decreased since yesterday. He feels bloated and has been passing gas. Denies fever, chills, chest pain, SOB, nausea, vomiting or dysuria. PMH - GERD PSH - Colonscopy 2005, endoscopy 2007 Allergies - Denies Meds - Omeprazole FamHx - Grandafather (colorectal cancer, at age of 86), Mother (ovarian cancer, at age of 53 SocHx - Last alcohol and tobacco use was in 2004 and denies illicit drug use Review of Systems: -Gen: No fever, No chills, No headache, No lethargy, No weakness. -HEENT: No dizziness, No change in vision, No change in hearing, No sore throat, No dysphagia, No nasal congestion, No mucous. -Cardio: No chest pain, No palpitations, No lower extremity edema, No orthopnea. -Resp: No cough, No dyspnea, No hemoptysis, No wheezing, No pain on inspiration. -GI: + abdominal pain, No nausea/vomiting, + diarrhea, No hematochezia, No hematemesis. -: No dysuria, No urinary freq, No incontinence, No hematuria, No change in urinary stream. -MSK: No back pain, No muscle weakness, No radiating pain. -Skin: No itching, No rash, No lesions. -Neuro: No confusion, No numbness, No tingling, No focal weakness, No radicular pain, No syncope. -Psych: No anxiety, No depression, No H/I, No S/I, No hallucinations. Review of Systems - Review of Systems Review of Systems: see HPI Past Patient History - Infectious Disease Hx of Infectious Diseases: None - Tetanus Immunizations Tetanus Immunization: Unknown - Past Medical History & Family History Past Medical History?: Yes - Past Social History Smoking Status: Never Smoked Chewing Tobacco Use: No Cigar Use: No Alcohol: None Drugs: Denies Home Situation {Lives}: With Family - MUSCULOSKELETAL/RHEUMATOLOGICAL Hx Falls: No - GENITOURINARY/GYNECOLOGICAL Hx Genitourinary Disorders: No - PSYCHIATRIC Hx Substance Use: No - SURGICAL HISTORY Hx Surgeries: No - ANESTHESIA Hx Anesthesia: No Meds Allergies/Adverse Reactions: Allergies Allergy/AdvReac Type Severity Reaction Status Date / Time No Known Allergies Allergy Unverified 08/06/15 21:39 - Medications Medications: Current Medications Acetaminophen (Tylenol 325mg Tab) 650 mg PO Q6 PRN PRN Reason: Pain, moderate (4-7) Heparin Sodium (Porcine) (Heparin) 5,[address] [facility] Last Admin: 07/22/18 10:00 Dose: 5,000 units Metronidazole (Flagyl) 500 mg in 100 mls @ 100 mls/hr IV STAT [facility]; Protocol Ciprofloxacin (Cipro 400mg/200ml Dsw) 400 mg in 200 mls @ 133 mls/hr IVPB Q12H [facility]; Protocol Last Admin: 07/22/18 05:08 Dose: 133 mls/hr Metronidazole (Flagyl) 500 mg in 100 mls @ 100 mls/hr IVPB Q8H [facility]; Protocol Last Admin: 07/22/18 08:53 Dose: 100 mls/hr Dextrose/Sodium Chloride (Dextrose 5%/0.45% Ns 1000 Ml) 1,000 mls @ 125 mls/hr IV .Q8H [facility] Last Admin: 07/22/18 08:52 Dose: 125 mls/hr Morphine Sulfate (Morphine) 2 mg IVP Q4 PRN PRN Reason: Pain, severe (8-10) Last Admin: 07/22/18 09:00 Dose: 2 mg Ondansetron HCl (Zofran Inj) 4 mg IVP Q6H PRN PRN Reason: Nausea/Vomiting Pantoprazole Sodium (Protonix Inj) [address] [facility] Last Admin: 07/22/18 10:00 Dose: 40 mg Pneumococcal Polyvalent Vaccine (Pneumovax 23 Vaccine) 0.5 ml IM .ONCE ONE Stop: 07/23/18 14:01 Physical Exam - Constitutional Appears: Non-toxic, No Acute Distress - Head Exam Head Exam: ATRAUMATIC, NORMAL INSPECTION - Eye Exam Eye Exam: Normal appearance - ENT Exam ENT Exam: Mucous Membranes Moist, Normal Exam - Respiratory Exam Respiratory Exam: Clear to Auscultation Bilateral, NORMAL BREATHING PATTERN. absent: Rales, Rhonchi, Wheezes, Respiratory Distress - Cardiovascular Exam Cardiovascular Exam: REGULAR RHYTHM, +S1, +S2. absent: RRR - GI/Abdominal Exam GI & Abdominal Exam: Distended, Normal Bowel Sounds, Tenderness. absent: Diminished Bowel Sounds, Firm, Guarding, Rebound, Rigid - Extremities Exam Extremities exam: Positive for: normal inspection - Neurological Exam Neurological exam: Alert, Oriented x3 - Psychiatric Exam Psychiatric exam: Normal Affect - Skin Skin Exam: Dry, Normal Color, Warm Results - Vital Signs Recent Vital Signs: Last Vital Signs Temp 98.5 F 07/22/18 08:00 Pulse 66 07/22/18 09:03 Resp 20 07/22/18 08:00 BP 110/68 07/22/18 09:03 Pulse Ox 95 07/22/18 08:00 - Labs Result Diagrams: 07/22/18 07:06 07/22/18 07:06 Labs: Laboratory Results - last 24 hr 07/21/18 07/22/18 07/22/18 20:15 07:06 07:06 WBC 9.5 RBC 4.13 L Hgb 13.3 Hct 39.4 MCV 95.4 H MCH 32.2 H MCHC 33.7 RDW 13.1 Plt Count 161 MPV 8.8 Neut % (Auto) 70.1 Lymph % (Auto) 14.6 L [place] % (Auto) 14.4 H Eos % (Auto) 0.6 Baso % (Auto) 0.3 Neut # (Auto) 6.7 Lymph # (Auto) 1.4 [place] # (Auto) 1.4 H Eos # (Auto) 0.1 Baso # (Auto) 0.0 Sodium 135 Potassium 3.8 Chloride 103 Carbon Dioxide 28 Anion Gap 8 L BUN 12 Creatinine 0.9 Est GFR ( Amer) > 60 Est GFR (Non-Af Amer) > 60 Random Glucose 117 H Calcium 8.0 L Phosphorus 3.0 2.2 L Magnesium 2.3 2.1 Total Bilirubin 2.6 H Direct Bilirubin 0.1 AST 18 ALT 16 L D Alkaline Phosphatase 56 Total Protein 6.3 Albumin 3.6 Globulin 2.6 Albumin/Globulin Ratio 1.4 Triglycerides 36 D Cholesterol 119 LDL Cholesterol Direct 74 HDL Cholesterol 43 Assessment & Plan - Assessment and Plan (Free Text) Assessment: 52 y/o male with acute diverticulitis. Plan: -VSS, afebrile -continue IV antibiotics -no plans for surgery at this time D/w Dr. Namrata Daugherty, PGY-1
[2018-07-22] MEDS: metroNIDAZOLE IV 500 mg/100 ml 500 MG/100 ML BAG IV SCH (23:18)
[2018-07-23] MEDS: metroNIDAZOLE IV 500 mg/100 ml 500 MG/100 ML BAG IVPB SCH ×4 (00:08→23:40)
[2018-07-23] MEDS: Ciprofloxacin 400mg/200ml D5W 400 MG/200 ML BAG IVPB SCH ×2 (05:11→18:36)
[2018-07-23] MEDS: Dextrose 5%/0.45% NS 1,000 ML IV SCH ×3 (07:00→21:38)
[2018-07-23 07:08] LABS: BASO % 0.4 % (0.0-2.0); EOS # 0.1 K/uL (0.0-0.7); EOS % 2.3 % (0.0-4.0); HEMOGLOBIN 13.2 g/dL (12.0-18.0); LYMPH # 1.5 K/uL (1.0-4.3); LYMPH % 24.8 % (20.0-40.0); MEAN CELL VOLUME 95.2 fL (80.0-94.0); MEAN CORPUSCULAR HEMOGLOBIN 32.1 pg (27.0-31.0); MEAN CORPUSCULAR HGB CONC 33.8 g/dL (33.0-37.0); MEAN PLATELET VOLUME 8.8 fL (7.2-11.7); MONO # 0.9 K/uL (0.0-0.8); MONO % 14.7 % (0.0-10.0); NEUT # 3.5 K/uL (1.8-7.0); NEUT % 57.8 % (50.0-75.0); RBC 4.09 Mil/uL (4.40-5.90); RED CELL DISTRIBUTION WIDTH 12.9 % (11.5-14.5)
--- NOTE | 2018-07-23 07:08 | CP.PCM.PN ---
<Marycarmen Pascual - Last Filed: 07/23/18 15:49> Subjective - Date & Time of Evaluation Date of Evaluation: 07/23/18 Time of Evaluation: 07:07 - Subjective Subjective: Progress Note for Hospitalist service Patient seen and examined at bedside. He states his pain is much improved from before, but has persistent pain at the site if he presses on his LLQ. He would like to try clear liquids if possible. He states his headache is not bothering him as much. He denies fevers, chills, chest pain, dizziness, palpitation, andrew rtness of breath, nausea, vomiting, diarrhea, urinary discomfort or frequency and leg pain. He is passing gas. Objective - Vital Signs/Intake and Output Vital Signs (last 24 hours): Temp Pulse Resp BP Pulse Ox 98.5 F 73 20 114/65 95 07/22/18 23:30 07/22/18 23:30 07/22/18 23:30 07/22/18 23:30 07/22/18 23:30 Intake and Output: 07/23/18 07/23/18 06:59 18:59 Intake Total 1000 Balance 1000 - Medications Medications: Current Medications Heparin Sodium (Porcine) (Heparin) 5,000 units SC Q12H [facility] Last Admin: 07/22/18 21:10 Dose: 5,000 units Metronidazole (Flagyl) 500 mg in 100 mls @ 100 mls/hr IV STAT [facility]; Protocol Ciprofloxacin (Cipro 400mg/200ml Dsw) 400 mg in 200 mls @ 133 mls/hr IVPB Q12H [facility]; Protocol Last Admin: 07/23/18 05:11 Dose: 133 mls/hr Metronidazole (Flagyl) 500 mg in 100 mls @ 100 mls/hr IVPB Q8H [facility]; Protocol Last Admin: 07/22/18 23:18 Dose: 100 mls/hr Dextrose/Sodium Chloride (Dextrose 5%/0.45% Ns 1000 Ml) 1,000 mls @ 125 mls/hr IV .Q8H [facility] Last Admin: 07/22/18 21:49 Dose: Not Given Morphine Sulfate (Morphine) 2 mg IVP Q4 PRN PRN Reason: Pain, severe (8-10) Last Admin: 07/23/18 05:37 Dose: 2 mg Ondansetron HCl (Zofran Inj) 4 mg IVP Q6H PRN PRN Reason: Nausea/Vomiting Pantoprazole Sodium (Protonix Inj) 40 mg IVP DAILY [facility] Last Admin: 07/22/18 10:00 Dose: 40 mg Pneumococcal Polyvalent Vaccine (Pneumovax 23 Vaccine) 0.5 ml IM .ONCE ONE Stop: 07/23/18 14:01 - Labs Labs: 07/22/18 07:06 07/22/18 07:06 - Constitutional Appears: Well, Non-toxic, No Acute Distress - Head Exam Head Exam: ATRAUMATIC, NORMOCEPHALIC - Eye Exam Eye Exam: EOMI, PERRL - ENT Exam ENT Exam: Mucous Membranes Moist - Neck Exam Neck Exam: Full ROM. absent: Tenderness - Respiratory Exam Respiratory Exam: Clear to Ausculation Bilateral. absent: Rales, Rhonchi, Wheezes, Respiratory Distress, Stridor - Cardiovascular Exam Cardiovascular Exam: REGULAR RHYTHM, +S1, +S2. absent: Gallop, Rubs, Murmur - GI/Abdominal Exam GI & Abdominal Exam: Soft, Tenderness (Mild LLQ tenderness), Normal Bowel Sounds. absent: Firm, Guarding, Rigid - Extremities Exam Extremities Exam: Normal Capillary Refill. absent: Calf Tenderness, Pedal Edema - Back Exam Back Exam: absent: CVA tenderness (L), CVA tenderness (R) - Neurological Exam Neurological Exam: Alert, Awake, Oriented x3 - Psychiatric Exam Psychiatric exam: Normal Affect, Normal Mood - Skin Skin Exam: Dry, Intact, Warm Assessment and Plan - Assessment and Plan (Free Text) Assessment: 52 year old male with history of GERD presenting for abdominal pain, found to marques ve acute diverticulitis with microperforation of imaging. Plan: Acute diverticulitis with microperforation - Afebrile overnight - WBC 6.0 today, downtrending - CT A/P: sigmoid diverticulitis, area of air representing micoperforation vs diverticula, unremarkable pancreas, no gallstones - Follow up blood cultures - Lipase elevated at 2893 - T bili elevated at 2.6 - D5 1/2NS @ 125 cc/hr - Cipro 400 mg IV Q12H- started 07/21 - Flagyl 500 mg IV Q8H- started 07/21 - Morphine 2 mg IV Q4H PRN - Zofran 4 mg IV Q6H PRN - GI Dr. Urias consulted, help appreciated Recommend continued antibiotic treatment with Cipro and Flagyl for total of 10 days, pain control, clear liquid diet - advance slowly as tolerated. Outpatient colonoscopy in 6-8 weeks after resolution of acute issues. Started on Clear liquid diet, tolerated well. Plan to advance to heart health diet at dinner. - Surgery Dr. Ortega consulted, help appreciated Continue antibiotics. Advance diet as tolerated. GERD - Protonix 40 mg IV daily Headache, resolved - Continue to monitor Hypokalemia K 3.5, repleted Continue to monitor Prophylaxis VTE: SCDs, Heparin 5000 SC Q12 GI: Protonix 40 mg IV daily Case discussed with Dr. Deisy Pascual, PGY1 <Kailash Olivas - Last Filed: 07/23/18 16:51> Objective - Vital Signs/Intake and Output Vital Signs (last 24 hours): Temp Pulse Resp BP Pulse Ox 98.1 F 73 20 131/46 L 98 07/23/18 16:40 07/23/18 16:40 07/23/18 16:40 07/23/18 16:40 07/23/18 16:40 Intake and Output: 07/23/18 07/23/18 06:59 18:59 Intake Total 1000 Balance 1000 - Medications Medications: Current Medications Heparin Sodium (Porcine) (Heparin) 5,000 units SC Q12H [facility] Last Admin: 07/23/18 08:49 Dose: 5,000 units Metronidazole (Flagyl) 500 mg in 100 mls @ 100 mls/hr IV STAT [facility]; Protocol Ciprofloxacin (Cipro 400mg/200ml Dsw) 400 mg in 200 mls @ 133 mls/hr IVPB Q12H [facility]; Protocol Last Admin: 07/23/18 05:11 Dose: 133 mls/hr Metronidazole (Flagyl) 500 mg in 100 mls @ 100 mls/hr IVPB Q8H [facility]; Protocol Last Admin: 07/23/18 16:07 Dose: 100 mls/hr Dextrose/Sodium Chloride (Dextrose 5%/0.45% Ns 1000 Ml) 1,000 mls @ 125 mls/hr IV .Q8H [facility] Last Admin: 07/23/18 14:05 Dose: 125 mls/hr Morphine Sulfate (Morphine) 2 mg IVP Q4 PRN PRN Reason: Pain, severe (8-10) Last Admin: 07/23/18 05:37 Dose: 2 mg Ondansetron HCl (Zofran Inj) 4 mg IVP Q6H PRN PRN Reason: Nausea/Vomiting Pantoprazole Sodium (Protonix Inj) 40 mg IVP DAILY [facility] Last Admin: 07/23/18 11:26 Dose: 40 mg - Labs Labs: 07/23/18 06:54 07/23/18 06:54 Attending/Attestation - Attestation I have personally seen and examined this patient.: Yes I have fully participated in the care of the patient.: Yes I have reviewed all pertinent clinical information, including history, physical exam and plan: Yes Notes (Text): Patient seen and examined with the residents, agree with above. No acute distress Noted to have mild LLQ tenderness on physical examination Continue with current Abx therapy; consider changing to PO today/tomorrow to finish course of 10 days. Advance diet as tolerated.
[2018-07-23 07:38] LABS: ALB/GLOB RATIO 1.4 (1.0-2.1); ALBUMIN 3.7 g/dL (3.5-5.0); ALT/SGPT 17 U/L (21-72); AST/SGOT 20 U/L (17-59); BLOOD UREA NITROGEN 9 mg/dL (9-20); CALCIUM 8.3 mg/dl (8.6-10.4); GFR NON-AFRICAN AMERICAN > 60
--- NOTE | 2018-07-23 09:14 | CP.PCM.PN ---
<Nav Galvan - Last Filed: 07/23/18 09:10> Subjective - Date & Time of Evaluation Date of Evaluation: 07/23/18 Time of Evaluation: 07:00 - Subjective Subjective: PGY6 GI Fellow Progress Note Patient seen and examined bedside this morning. The patient states he is feeling better today. Eager to try liquid diet. Denies any nausea, vomiting, bowel movements. No events overnight. 12 system ROS performed and negative except where stated Objective - Vital Signs/Intake and Output Vital Signs (last 24 hours): Temp Pulse Resp BP Pulse Ox 98.1 F 68 20 101/56 L 98 07/23/18 08:00 07/23/18 08:00 07/23/18 08:00 07/23/18 08:00 07/23/18 08:00 Intake and Output: 07/23/18 07/23/18 06:59 18:59 Intake Total 1000 Balance 1000 - Medications Medications: Current Medications Heparin Sodium (Porcine) (Heparin) 5,000 units SC Q12H [facility] Last Admin: 07/23/18 08:49 Dose: 5,000 units Metronidazole (Flagyl) 500 mg in 100 mls @ 100 mls/hr IV STAT [facility]; Protocol Ciprofloxacin (Cipro 400mg/200ml Dsw) 400 mg in 200 mls @ 133 mls/hr IVPB Q12H [facility]; Protocol Last Admin: 07/23/18 05:11 Dose: 133 mls/hr Metronidazole (Flagyl) 500 mg in 100 mls @ 100 mls/hr IVPB Q8H [facility]; Protocol Last Admin: 07/23/18 08:49 Dose: 100 mls/hr Dextrose/Sodium Chloride (Dextrose 5%/0.45% Ns 1000 Ml) 1,000 mls @ 125 mls/hr IV .Q8H [facility] Last Admin: 07/23/18 07:00 Dose: 125 mls/hr Morphine Sulfate (Morphine) 2 mg IVP Q4 PRN PRN Reason: Pain, severe (8-10) Last Admin: 07/23/18 05:37 Dose: 2 mg Ondansetron HCl (Zofran Inj) 4 mg IVP Q6H PRN PRN Reason: Nausea/Vomiting Pantoprazole Sodium (Protonix Inj) 40 mg IVP DAILY [facility] Last Admin: 07/22/18 10:00 Dose: 40 mg Pneumococcal Polyvalent Vaccine (Pneumovax 23 Vaccine) 0.5 ml IM .ONCE ONE Stop: 07/23/18 14:01 - Labs Labs: 07/23/18 06:54 07/23/18 06:54 - Constitutional Appears: Non-toxic, No Acute Distress - Eye Exam Eye Exam: EOMI, PERRL - ENT Exam ENT Exam: Mucous Membranes Moist - Respiratory Exam Respiratory Exam: Clear to Ausculation Bilateral. absent: Rales, Rhonchi, Wheezes - Cardiovascular Exam Cardiovascular Exam: RRR, +S1, +S2 - GI/Abdominal Exam GI & Abdominal Exam: Soft, Tenderness (LLQ), Normal Bowel Sounds. absent: Distended, Firm, Guarding, Rigid, Mass, Organomegaly, Pulsatile Mass, Rebound - Extremities Exam Extremities Exam: Normal Inspection. absent: Pedal Edema - Neurological Exam Neurological Exam: Alert, Awake, Oriented x3 - Psychiatric Exam Psychiatric exam: Normal Affect, Normal Mood - Skin Skin Exam: Dry, Warm Assessment and Plan - Assessment and Plan (Free Text) Assessment: Patient is a 52yo male with PMHx significant for diverticulosis who presented to the ED with abdominal pain -Acute diverticulitis complicated by microperforation -Hyperlipasemia and indirect hyperbilirubinemia Plan: -Advance to clear liquid diet, advance slowly as tolerated -Surgical consultation appreciated -Continue antibiotic regimen with Cipro/Flagyl - complete 10 day course -Pain control with analgesia per primary service -Outpatient colonoscopy 6-8 weeks after resolution of acute issues <Braxton Urias - Last Filed: 07/23/18 10:10> Objective - Vital Signs/Intake and Output Vital Signs (last 24 hours): Temp Pulse Resp BP Pulse Ox 98.1 F 68 20 101/56 L 98 07/23/18 08:00 07/23/18 08:00 07/23/18 08:00 07/23/18 08:00 07/23/18 08:00 Intake and Output: 07/23/18 07/23/18 06:59 18:59 Intake Total 1000 Balance 1000 - Medications Medications: Current Medications Heparin Sodium (Porcine) (Heparin) 5,000 units SC Q12H [facility] Last Admin: 07/23/18 08:49 Dose: 5,000 units Metronidazole (Flagyl) 500 mg in 100 mls @ 100 mls/hr IV STAT [facility]; Protocol Ciprofloxacin (Cipro 400mg/200ml Dsw) 400 mg in 200 mls @ 133 mls/hr IVPB Q12H [facility]; Protocol Last Admin: 07/23/18 05:11 Dose: 133 mls/hr Metronidazole (Flagyl) 500 mg in 100 mls @ 100 mls/hr IVPB Q8H [facility]; Protocol Last Admin: 07/23/18 08:49 Dose: 100 mls/hr Dextrose/Sodium Chloride (Dextrose 5%/0.45% Ns 1000 Ml) 1,000 mls @ 125 mls/hr IV .Q8H [facility] Last Admin: 07/23/18 07:00 Dose: 125 mls/hr Potassium Chloride (Potassium Chloride 20 Meq/100 Ml) 20 meq in 100 mls @ 50 mls/hr IVPB Q2 [facility] Stop: 07/23/18 13:59 Morphine Sulfate (Morphine) 2 mg IVP Q4 PRN PRN Reason: Pain, severe (8-10) Last Admin: 07/23/18 05:37 Dose: 2 mg Ondansetron HCl (Zofran Inj) 4 mg IVP Q6H PRN PRN Reason: Nausea/Vomiting Pantoprazole Sodium (Protonix Inj) 40 mg IVP DAILY [facility] Last Admin: 07/22/18 10:00 Dose: 40 mg Pneumococcal Polyvalent Vaccine (Pneumovax 23 Vaccine) 0.5 ml IM .ONCE ONE Stop: 07/23/18 14:01 - Labs Labs: 07/23/18 06:54 07/23/18 06:54 Attending/Attestation - Attestation I have personally seen and examined this patient.: Yes I have fully participated in the care of the patient.: Yes I have reviewed all pertinent clinical information, including history, physical exam and plan: Yes Notes (Text): 07/23/18 10:08 I have seen and examined patient with GI fellow. No acute events overnight, his abdominal pain has improved and he is passing gas. He denies nausea, vomiting, fever/chills, weight loss, or bowel movements. Review of vitals from today are normal. Acute complicated diverticulitis Hyperlipasemia - secondary to intraabdominal inflammatory process, normal appearing pancreas - Clear liquid diet as tolerated - Continue with antibiotic therapy - Follow up surgical recommendations - Plan for colonoscopy in 6-8 weeks following resolution of acute symptoms - Will continue to monitor patient clinical course
--- NOTE | 2018-07-23 12:08 | CP.PCM.PN ---
Subjective - Date & Time of Evaluation Date of Evaluation: 07/23/18 Time of Evaluation: 12:03 - Subjective Subjective: Surgery: Dr. Ott Pt seen and examined. No acute overnight events. States he feels better and abdominal pain has improved significantly. He denies any nausea/vomiting, diarrhea, fevers or chills. Objective - Vital Signs/Intake and Output Vital Signs (last 24 hours): Temp Pulse Resp BP Pulse Ox 98.1 F 68 20 101/56 L 98 07/23/18 08:00 07/23/18 08:00 07/23/18 08:00 07/23/18 08:00 07/23/18 08:00 Intake and Output: 07/23/18 07/23/18 06:59 18:59 Intake Total 1000 Balance 1000 - Medications Medications: Current Medications Heparin Sodium (Porcine) (Heparin) 5,000 units SC Q12H [facility] Last Admin: 07/23/18 08:49 Dose: 5,000 units Metronidazole (Flagyl) 500 mg in 100 mls @ 100 mls/hr IV STAT [facility]; Protocol Ciprofloxacin (Cipro 400mg/200ml Dsw) 400 mg in 200 mls @ 133 mls/hr IVPB Q12H [facility]; Protocol Last Admin: 07/23/18 05:11 Dose: 133 mls/hr Metronidazole (Flagyl) 500 mg in 100 mls @ 100 mls/hr IVPB Q8H [facility]; Protocol Last Admin: 07/23/18 08:49 Dose: 100 mls/hr Dextrose/Sodium Chloride (Dextrose 5%/0.45% Ns 1000 Ml) 1,000 mls @ 125 mls/hr IV .Q8H [facility] Last Admin: 07/23/18 07:00 Dose: 125 mls/hr Potassium Chloride (Potassium Chloride 20 Meq/100 Ml) 20 meq in 100 mls @ 50 mls/hr IVPB Q2 [facility] Stop: 07/23/18 13:59 Last Admin: 07/23/18 11:26 Dose: 50 mls/hr Morphine Sulfate (Morphine) 2 mg IVP Q4 PRN PRN Reason: Pain, severe (8-10) Last Admin: 07/23/18 05:37 Dose: 2 mg Ondansetron HCl (Zofran Inj) 4 mg IVP Q6H PRN PRN Reason: Nausea/Vomiting Pantoprazole Sodium (Protonix Inj) 40 mg IVP DAILY [facility] Last Admin: 07/23/18 11:26 Dose: 40 mg Pneumococcal Polyvalent Vaccine (Pneumovax 23 Vaccine) 0.5 ml IM .ONCE ONE Stop: 07/23/18 14:01 - Labs Labs: 07/23/18 06:54 07/23/18 06:54 - Constitutional Appears: Well, No Acute Distress - Head Exam Head Exam: ATRAUMATIC, NORMOCEPHALIC - ENT Exam ENT Exam: Mucous Membranes Moist - Respiratory Exam Respiratory Exam: NORMAL BREATHING PATTERN - Cardiovascular Exam Cardiovascular Exam: RRR - GI/Abdominal Exam GI & Abdominal Exam: Guarding (voluntary), Soft, Tenderness (LLQ with radiation to the Right ). absent: Distended - Neurological Exam Neurological Exam: Alert, Awake, Oriented x3 - Skin Skin Exam: Dry, Warm Assessment and Plan - Assessment and Plan (Free Text) Assessment: 52M with acute diverticulitis Plan: - cont ABX - advance diet slowly as tolerated - outpt colonoscopy with GI in 4-6 weeks - d/w Dr. Namrata Avila
[2018-07-23] MEDS ORDERED: Pneumococcal 23-Valent Vaccine IM ONE (14:00)
[2018-07-23] MEDS: metroNIDAZOLE IV 500 mg/100 ml 500 MG/100 ML BAG IV SCH (23:40)
[2018-07-24] MEDS: Ciprofloxacin 400mg/200ml D5W 400 MG/200 ML BAG IVPB SCH (05:14)
[2018-07-24] MEDS: Dextrose 5%/0.45% NS 1,000 ML IV SCH ×2 (06:48→06:52)
--- NOTE | 2018-07-24 06:57 | CP.PCM.PN ---
Subjective - Date & Time of Evaluation Date of Evaluation: 07/24/18 Time of Evaluation: 06:57 Objective - Vital Signs/Intake and Output Vital Signs (last 24 hours): Temp Pulse Resp BP Pulse Ox 98.8 F 78 18 114/69 98 07/23/18 23:39 07/23/18 23:39 07/23/18 23:39 07/23/18 23:39 07/23/18 23:39 Intake and Output: 07/23/18 07/24/18 18:59 06:59 Intake Total 1000 1000 Output Total 800 Balance 1000 200 - Medications Medications: Current Medications Heparin Sodium (Porcine) (Heparin) 5,000 units SC Q12H [facility] Last Admin: 07/23/18 21:38 Dose: 5,000 units Metronidazole (Flagyl) 500 mg in 100 mls @ 100 mls/hr IV STAT [facility]; Protocol Ciprofloxacin (Cipro 400mg/200ml Dsw) 400 mg in 200 mls @ 133 mls/hr IVPB Q12H [facility]; Protocol Last Admin: 07/24/18 05:14 Dose: 133 mls/hr Metronidazole (Flagyl) 500 mg in 100 mls @ 100 mls/hr IVPB Q8H [facility]; Protocol Last Admin: 07/23/18 23:40 Dose: 100 mls/hr Dextrose/Sodium Chloride (Dextrose 5%/0.45% Ns 1000 Ml) 1,000 mls @ 125 mls/hr IV .Q8H [facility] Last Admin: 07/24/18 06:52 Dose: Not Given Morphine Sulfate (Morphine) 2 mg IVP Q4 PRN PRN Reason: Pain, severe (8-10) Last Admin: 07/23/18 05:37 Dose: 2 mg Ondansetron HCl (Zofran Inj) 4 mg IVP Q6H PRN PRN Reason: Nausea/Vomiting Pantoprazole Sodium (Protonix Inj) 40 mg IVP DAILY [facility] Last Admin: 07/23/18 11:26 Dose: 40 mg - Labs Labs: 07/23/18 06:54 07/23/18 06:54
[2018-07-24 08:15] LABS: BASO % 0.4 % (0.0-2.0); EOS # 0.2 K/uL (0.0-0.7); EOS % 3.4 % (0.0-4.0); HEMOGLOBIN 13.4 g/dL (12.0-18.0); LYMPH # 1.2 K/uL (1.0-4.3); LYMPH % 23.4 % (20.0-40.0); MEAN CELL VOLUME 93.8 fL (80.0-94.0); MEAN CORPUSCULAR HEMOGLOBIN 32.2 pg (27.0-31.0); MEAN CORPUSCULAR HGB CONC 34.3 g/dL (33.0-37.0); MEAN PLATELET VOLUME 8.8 fL (7.2-11.7); MONO # 0.9 K/uL (0.0-0.8); MONO % 16.5 % (0.0-10.0); NEUT # 2.9 K/uL (1.8-7.0); NEUT % 56.3 % (50.0-75.0); RBC 4.17 Mil/uL (4.40-5.90); RED CELL DISTRIBUTION WIDTH 12.8 % (11.5-14.5); WHITE BLOOD COUNT 5.2 K/uL (4.8-10.8)
[2018-07-24 08:18] LABS: ALB/GLOB RATIO 1.4 (1.0-2.1); ALBUMIN 3.7 g/dL (3.5-5.0); ALT/SGPT 20 U/L (21-72); AST/SGOT 23 U/L (17-59); BLOOD UREA NITROGEN 9 mg/dL (9-20); CALCIUM 8.3 mg/dl (8.6-10.4); GFR NON-AFRICAN AMERICAN > 60
[2018-07-24 08:28] VITALS: BP 113/72; PULSE 66; RESP 20; TEMP 98; O2SAT 95
[2018-07-24] MEDS: metroNIDAZOLE IV 500 mg/100 ml 500 MG/100 ML BAG IV SCH (09:15)
[2018-07-24] MEDS: metroNIDAZOLE IV 500 mg/100 ml 500 MG/100 ML BAG IVPB SCH ×2 (09:18→09:19)
--- NOTE | 2018-07-24 09:24 | CP.PCM.PN ---
Subjective - Date & Time of Evaluation Date of Evaluation: 07/24/18 Time of Evaluation: 07:00 - Subjective Subjective: Surgery: Dr. Ott Pt seen and examined. No acute overnight events. Pt states he was started on a regular diet last night which he's tolerating. He states his abdominal pain has improved and he denies nausea/vomiting, fevers/chills. Objective - Vital Signs/Intake and Output Vital Signs (last 24 hours): Temp Pulse Resp BP Pulse Ox 98 F 66 20 113/72 95 07/24/18 08:00 07/24/18 08:00 07/24/18 08:00 07/24/18 08:00 07/24/18 08:00 Intake and Output: 07/24/18 07/24/18 06:59 18:59 Intake Total 1000 Output Total 800 Balance 200 - Medications Medications: Current Medications Heparin Sodium (Porcine) (Heparin) 5,000 units SC Q12H [facility] Last Admin: 07/24/18 09:16 Dose: Not Given Metronidazole (Flagyl) 500 mg in 100 mls @ 100 mls/hr IV STAT [facility]; Protocol Ciprofloxacin (Cipro 400mg/200ml Dsw) 400 mg in 200 mls @ 133 mls/hr IVPB Q12H [facility]; Protocol Last Admin: 07/24/18 05:14 Dose: 133 mls/hr Metronidazole (Flagyl) 500 mg in 100 mls @ 100 mls/hr IVPB Q8H [facility]; Protocol Last Admin: 07/24/18 09:19 Dose: 100 mls/hr Dextrose/Sodium Chloride (Dextrose 5%/0.45% Ns 1000 Ml) 1,000 mls @ 125 mls/hr IV .Q8H [facility] Last Admin: 07/24/18 06:52 Dose: Not Given Morphine Sulfate (Morphine) 2 mg IVP Q4 PRN PRN Reason: Pain, severe (8-10) Last Admin: 07/23/18 05:37 Dose: 2 mg Ondansetron HCl (Zofran Inj) 4 mg IVP Q6H PRN PRN Reason: Nausea/Vomiting Pantoprazole Sodium (Protonix Inj) 40 mg IVP DAILY [facility] Last Admin: 07/24/18 09:15 Dose: 40 mg - Labs Labs: 07/24/18 07:53 07/24/18 07:53 - Constitutional Appears: Well, No Acute Distress - Head Exam Head Exam: ATRAUMATIC, NORMOCEPHALIC - Eye Exam Eye Exam: Normal appearance - ENT Exam ENT Exam: Mucous Membranes Moist - Respiratory Exam Respiratory Exam: NORMAL BREATHING PATTERN - Cardiovascular Exam Cardiovascular Exam: RRR - GI/Abdominal Exam GI & Abdominal Exam: Soft, Tenderness (LLQ on deep palpation ). absent: Distended, Guarding, Rebound - Neurological Exam Neurological Exam: Alert, Awake, Oriented x3 - Skin Skin Exam: Dry, Warm Assessment and Plan - Assessment and Plan (Free Text) Assessment: 52M with acute diverticulitis; resolving Plan: - cont ABX - f/u with GI in 4-6 weeks for outpt colonoscopy - no further surgical intervention needed at this time - d/w Dr. Namrata Avila
--- NOTE | 2018-07-24 10:21 | CP.PCM.PN ---
<Nav Galvan - Last Filed: 07/24/18 10:19> Subjective - Date & Time of Evaluation Date of Evaluation: 07/24/18 Time of Evaluation: 07:20 - Subjective Subjective: PGY6 GI Fellow Progress Note Patient seen and examined bedside this morning. The patient states he is feeling well and has significantly improved abdominal discomfort. Able to move in bed and walk without pain. Passed small loose stool. Tolerated solid food last night without issue. No events overnight. 12 system ROS performed and negative except where stated. Objective - Vital Signs/Intake and Output Vital Signs (last 24 hours): Temp Pulse Resp BP Pulse Ox 98 F 66 20 113/72 95 07/24/18 08:00 07/24/18 08:00 07/24/18 08:00 07/24/18 08:00 07/24/18 08:00 Intake and Output: 07/24/18 07/24/18 06:59 18:59 Intake Total 1000 Output Total 800 Balance 200 - Medications Medications: Current Medications Heparin Sodium (Porcine) (Heparin) 5,000 units SC Q12H [facility] Last Admin: 07/24/18 09:16 Dose: Not Given Metronidazole (Flagyl) 500 mg in 100 mls @ 100 mls/hr IV STAT [facility]; Protocol Ciprofloxacin (Cipro 400mg/200ml Dsw) 400 mg in 200 mls @ 133 mls/hr IVPB Q12H [facility]; Protocol Last Admin: 07/24/18 05:14 Dose: 133 mls/hr Metronidazole (Flagyl) 500 mg in 100 mls @ 100 mls/hr IVPB Q8H [facility]; Protocol Last Admin: 07/24/18 09:19 Dose: 100 mls/hr Dextrose/Sodium Chloride (Dextrose 5%/0.45% Ns 1000 Ml) 1,000 mls @ 125 mls/hr IV .Q8H [facility] Last Admin: 07/24/18 06:52 Dose: Not Given Morphine Sulfate (Morphine) 2 mg IVP Q4 PRN PRN Reason: Pain, severe (8-10) Last Admin: 07/23/18 05:37 Dose: 2 mg Ondansetron HCl (Zofran Inj) 4 mg IVP Q6H PRN PRN Reason: Nausea/Vomiting Pantoprazole Sodium (Protonix Inj) 40 mg IVP DAILY [facility] Last Admin: 07/24/18 09:15 Dose: 40 mg - Labs Labs: 07/24/18 07:53 07/24/18 07:53 - Constitutional Appears: Non-toxic, No Acute Distress - Eye Exam Eye Exam: EOMI, PERRL - ENT Exam ENT Exam: Mucous Membranes Moist - Respiratory Exam Respiratory Exam: Clear to Ausculation Bilateral. absent: Rales, Rhonchi, Wheezes - Cardiovascular Exam Cardiovascular Exam: RRR, +S1, +S2 - GI/Abdominal Exam GI & Abdominal Exam: Soft, Normal Bowel Sounds. absent: Distended, Firm, Guarding, Rigid, Tenderness, Organomegaly - Extremities Exam Extremities Exam: Normal Inspection. absent: Pedal Edema - Neurological Exam Neurological Exam: Alert, Awake, Oriented x3 - Psychiatric Exam Psychiatric exam: Normal Affect, Normal Mood - Skin Skin Exam: Dry, Warm Assessment and Plan - Assessment and Plan (Free Text) Assessment: Patient is a 52yo male with PMHx significant for diverticulosis who presented to the ED with abdominal pain -Acute diverticulitis complicated by microperforation -Hyperlipasemia and indirect hyperbilirubinemia Plan: -Diet advanced by medical team last night - tolerating without issue -Continue with conservative management - Cipro/Flagyl for 10 day course -Surgical consultation appreciated -Pain control with analgesia per primary service -Outpatient colonoscopy 6-8 weeks after resolution of acute issues -OK for D/C from GI standpoint <Braxton Urias Y - Last Filed: 07/24/18 11:29> Objective - Vital Signs/Intake and Output Vital Signs (last 24 hours): Temp Pulse Resp BP Pulse Ox 98 F 66 20 113/72 95 07/24/18 08:00 07/24/18 08:00 07/24/18 08:00 07/24/18 08:00 07/24/18 08:00 Intake and Output: 07/24/18 07/24/18 06:59 18:59 Intake Total 1000 Output Total 800 Balance 200 - Medications Medications: Current Medications Heparin Sodium (Porcine) (Heparin) 5,000 units SC Q12H [facility] Last Admin: 07/24/18 09:16 Dose: Not Given Metronidazole (Flagyl) 500 mg in 100 mls @ 100 mls/hr IV STAT [facility]; Protocol Ciprofloxacin (Cipro 400mg/200ml Dsw) 400 mg in 200 mls @ 133 mls/hr IVPB Q12H [facility]; Protocol Last Admin: 07/24/18 05:14 Dose: 133 mls/hr Metronidazole (Flagyl) 500 mg in 100 mls @ 100 mls/hr IVPB Q8H [facility]; Protocol Last Admin: 07/24/18 09:19 Dose: 100 mls/hr Dextrose/Sodium Chloride (Dextrose 5%/0.45% Ns 1000 Ml) 1,000 mls @ 125 mls/hr IV .Q8H [facility] Last Admin: 07/24/18 06:52 Dose: Not Given Morphine Sulfate (Morphine) 2 mg IVP Q4 PRN PRN Reason: Pain, severe (8-10) Last Admin: 07/23/18 05:37 Dose: 2 mg Ondansetron HCl (Zofran Inj) 4 mg IVP Q6H PRN PRN Reason: Nausea/Vomiting Pantoprazole Sodium (Protonix Inj) 40 mg IVP DAILY [facility] Last Admin: 07/24/18 09:15 Dose: 40 mg - Labs Labs: 07/24/18 07:53 07/24/18 07:53 Attending/Attestation - Attestation I have personally seen and examined this patient.: Yes I have fully participated in the care of the patient.: Yes I have reviewed all pertinent clinical information, including history, physical exam and plan: Yes Notes (Text): 07/24/18 11:28 I have seen and examined patient with GI fellow. No acute events overnight, he is seen resting in bed comfortably. His abdominal pain has significantly improved and he denies nausea, vomiting, fever/chills. Tolerating PO diet without difficulty. Review of vitals from today are normal. Abdominal pain Acute sigmoid diverticulitis complicated by microperforation - Low residue diet as tolerated - Continue antibiotic therapy to complete 10 day course - Patient will require additional outpatient follow up along with colonoscopy within 6-8 weeks following resolution of acute symptoms - No further planned GI intervention, will sign off case. Please reconsult as n jose alfredo, thank you.
--- NOTE | 2018-07-24 11:57 | CP.PCM.DIS ---
Provider - Provider Date of Admission: 07/21/18 17:52 Attending physician: Ravi Chiu MD Consults: 07/22/18 14:42 Physician Consult Routine Comment: Consulting Provider: Darwin Ott Jr. Consulting Physician: Darwin Ott Jr. Reason for Consult: microperforation of diverticulum Time Spent in preparation of Discharge (in minutes): 40 Hospital Course - Lab Results Lab Results: Micro Results 07/21/18 14:15 Blood-Venous Blood Culture - Preliminary NO GROWTH AFTER 48 HOURS 07/21/18 13:31 Blood-Venous Blood Culture - Preliminary NO GROWTH AFTER 48 HOURS Most Recent Lab Values WBC 5.2 K/uL (4.8-10.8) 07/24/18 07:53 RBC 4.17 Mil/uL (4.40-5.90) L 07/24/18 07:53 Hgb 13.4 g/dL (12.0-18.0) 07/24/18 07:53 Hct 39.1 % (35.0-51.0) 07/24/18 07:53 MCV 93.8 fL (80.0-94.0) 07/24/18 07:53 MCH 32.2 pg (27.0-31.0) H 07/24/18 07:53 MCHC 34.3 g/dL (33.0-37.0) 07/24/18 07:53 RDW 12.8 % (11.5-14.5) 07/24/18 07:53 Plt Count 178 K/uL (130-400) 07/24/18 07:53 MPV 8.8 fL (7.2-11.7) 07/24/18 07:53 Neut % (Auto) 56.3 % (50.0-75.0) 07/24/18 07:53 Lymph % (Auto) 23.4 % (20.0-40.0) 07/24/18 07:53 Antelope % (Auto) 16.5 % (0.0-10.0) H 07/24/18 07:53 Eos % (Auto) 3.4 % (0.0-4.0) 07/24/18 07:53 Baso % (Auto) 0.4 % (0.0-2.0) 07/24/18 07:53 Neut # (Auto) 2.9 K/uL (1.8-7.0) 07/24/18 07:53 Lymph # (Auto) 1.2 K/uL (1.0-4.3) 07/24/18 07:53 Antelope # (Auto) 0.9 K/uL (0.0-0.8) H 07/24/18 07:53 Eos # (Auto) 0.2 K/uL (0.0-0.7) 07/24/18 07:53 Baso # (Auto) 0.0 K/uL (0.0-0.2) 07/24/18 07:53 Sodium 138 mmol/L (132-148) 07/24/18 07:53 Potassium 3.9 mmol/L (3.6-5.2) 07/24/18 07:53 Chloride 105 mmol/L (98-107) 07/24/18 07:53 Carbon Dioxide 27 mmol/L (22-30) 07/24/18 07:53 Anion Gap 10 (10-20) 07/24/18 07:53 BUN 9 mg/dL (9-20) 07/24/18 07:53 Creatinine 0.8 mg/dL (0.8-1.5) 07/24/18 07:53 Est GFR ( Amer) > 60 07/24/18 07:53 Est GFR (Non-Af Amer) > 60 07/24/18 07:53 Random Glucose 118 mg/dL (75-110) H 07/24/18 07:53 Calcium 8.3 mg/dl (8.6-10.4) L 07/24/18 07:53 Phosphorus 2.5 mg/dL (2.5-4.5) 07/24/18 07:53 Magnesium 1.9 mg/dL (1.6-2.3) 07/24/18 07:53 Total Bilirubin 1.0 mg/dL (0.2-1.3) 07/24/18 07:53 Direct Bilirubin 0.1 mg/dL (0.0-0.4) 07/22/18 07:06 AST 23 U/L (17-59) 07/24/18 07:53 ALT 20 U/L (21-72) L 07/24/18 07:53 Alkaline Phosphatase 57 U/L (38-126) 07/24/18 07:53 Total Protein 6.4 g/dL (6.3-8.3) 07/24/18 07:53 Albumin 3.7 g/dL (3.5-5.0) 07/24/18 07:53 Globulin 2.7 gm/dL (2.2-3.9) 07/24/18 07:53 Albumin/Globulin Ratio 1.4 (1.0-2.1) 07/24/18 07:53 Triglycerides 36 mg/dL (0-149) D 07/22/18 07:06 Cholesterol 119 mg/dL (0-199) 07/22/18 07:06 LDL Cholesterol Direct 74 mg/dL (0-129) 07/22/18 07:06 HDL Cholesterol 43 mg/dL (30-70) 07/22/18 07:06 Lipase 2893 U/L (23-300) H 07/21/18 13:36 Urine Color Yellow (YELLOW) 07/21/18 13:36 Urine Clarity Hazy (Clear) 07/21/18 13:36 Urine pH 6.0 (5.0-8.0) 07/21/18 13:36 Ur Specific [place] 1.024 (1.003-1.030) 07/21/18 13:36 Urine Protein 1+ mg/dL (NEGATIVE) H 07/21/18 13:36 Urine Glucose (UA) Normal mg/dL (Normal) 07/21/18 13:36 Urine Ketones Negative mg/dL (NEGATIVE) 07/21/18 13:36 Urine Blood Negative (NEGATIVE) 07/21/18 13:36 Urine Nitrate Negative (NEGATIVE) 07/21/18 13:36 Urine Bilirubin Negative (NEGATIVE) 07/21/18 13:36 Urine Urobilinogen Normal mg/dL (0.2-1.0) 07/21/18 13:36 Ur Leukocyte Esterase Neg Baldo/uL (Negative) 07/21/18 13:36 Urine WBC (Auto) < 1 /hpf (0-5) 07/21/18 13:36 Urine RBC (Auto) 2 /hpf (0-3) 07/21/18 13:36 - Hospital Course Hospital Course: On admission: Patient is a 52 yo male with history of GERD who presents with abdominal pain. Patient states that around midnight, he woke up with a sharp pain in his LLQ. The pain radiated across his lower abdomen. In the morning, he felt like he was constipated, so he took magnesium citrate. He then began to have diarrhea. He has had approximately 6 episodes of diarrhea today- watery, nonbloody. He also admits to nausea and has been unable to eat or drink anything since this morning. He denies vomiting. He endorses fever and chills. He says this pain has never happened to him before. Patient reports having a colonoscopy in 2007 in which they found diverticulosis. Hospital course: Patient was admitted for acute diverticulitis with microperforation. Patient was treated with Cipro and Flagyl. Patient was kept NPO initially, and diet was advanced slowly which he tolerated well without pain, nausea, vomiting or diarrhea. Blood cultures were negative for [address] Urias was consulted, who recommended continued antibiotic treatment for total of 10 days and outpatient colonoscopy 6 to [address] Ott was consulted, who recommended antibiotic treatment with no surgical intervention at this time. Upon discharge, patient pain was resolved with nausea, vomiting or diarrhea. Imaging: Testicular ultrasound: Small left hydrocele. Trace right hydrocele. CT abdomen/pelvis: Extensive inflammatory stranding and fluid involving the sigmoid colon consistent with acute diverticulitis. Small focus of air (series 3, image 146) may reflect a tiny micro perforation versus diverticula. Discharge instructions: Please follow up with your PMD Dr. Boucher in 1 to 2 weeks. Please follow up with GI Dr. Urias in 1 month for follow up and to schedule your outpatient colonoscopy in 6 to 8 weeks. You may continue to eat food and please drink plenty of water to avoid constipation. You have been given a 7 day supply of antibiotics to finish up a total of 10 days of antibiotics. Please return to the ED if you experience worsening of lower abdominal pain, nausea, vomiting, diarrhea, bloody stools or bloody vomiting. Prescriptions: Ciprofloxacin 500mg by mouth twice daily for 7 days Flagyl 500mg by mouth three times daily for 7 days. Discharge Exam - Head Exam Head Exam: ATRAUMATIC, NORMOCEPHALIC - Eye Exam Eye Exam: EOMI, PERRL - ENT Exam ENT Exam: Mucous Membranes Moist - Neck Exam Neck exam: Full Rom - Respiratory Exam Respiratory Exam: Clear to PA & Lateral, NORMAL BREATHING PATTERN. absent: Rales, Rhonchi, Wheezes, Respiratory Distress, Stridor - Cardiovascular Exam Cardiovascular Exam: REGULAR RHYTHM, +S1, +S2. absent: Gallop, Rubs, Systolic Murmur - GI/Abdominal Exam GI & Abdominal Exam: Normal Bowel Sounds, Soft. absent: Diminished Bowel Sounds, Distended, Firm, Guarding, Hernia, Tenderness - Extremities Exam Extremities exam: pedal pulses present - Neurological Exam Neurological exam: Alert, CN II-XII Intact, Oriented x3 - Psychiatric Exam Psychiatric exam: Normal Affect, Normal Mood - Skin Skin Exam: Dry, Intact, Warm Discharge Plan - Discharge Medications Prescriptions: Ciprofloxacin HCl [Cipro] 500 mg PO BID 7 Days #14 tab Metronidazole [Flagyl] 500 mg PO TID 7 Days #21 tablet Omeprazole 20 mg PO DAILY #30 capsule.dr - Follow Up Plan Condition: STABLE Disposition: HOME/ ROUTINE Instructions: Ciprofloxacin (Systemic), Constipation, Adult (DC), Diverticulitis (DC), Pancreatitis (DC), Metronidazole (Systemic), Omeprazole, Colonoscopy Additional Instructions: Please follow up with your PMD Dr. Boucher in 1 to 2 weeks. Please follow up with GI Dr. Urias in 1 month for follow up and to schedule your outpatient colonoscopy in 6 to 8 weeks. You may continue to eat food and please drink plenty of water to avoid constipation. You have been given a 7 day supply of antibiotics to finish up a total of 10 days of antibiotics. Please return to the ED if you experience worsening of lower abdominal pain, nausea, vomiting, diarrhea, bloody stools or bloody vomiting. Prescriptions: Ciprofloxacin 500mg by mouth twice daily for 7 days Flagyl 500mg by mouth three times daily for 7 days. Referrals: Carol Boucher MD [Medical Doctor] - Braxton Urias MD [Staff Provider] -
== END 2018-07-24 13:47 | disposition home or self-care (01) | DRG 392 ==
LOC: C.ER 12:54 → C.9E 17:52 → C.5S 19:45
PROVIDERS: ADMIT Internal Medicine; ATTEND Internal Medicine
DX: K57.32 Diverticulitis of large intestine without perforation or abscess without bleeding (principal); R17 Unspecified jaundice; I70.0 Atherosclerosis of aorta; E87.6 Hypokalemia; T47.4X5A Adverse effect of other laxatives, initial encounter; K21.9 Gastro-esophageal reflux disease without esophagitis; K44.9 Diaphragmatic hernia without obstruction or gangrene; R51 Headache